=== PATIENT | male | born 1990 | race Two or more races ===

== ENCOUNTER 2020-02-11 18:25 | Emergency (ER) | payer OTHER ==
[~2020-02-11] VITALS: Ht 193 cm; Wt 170.1 kg
[2020-02-11 20:08] VITALS: BP 148/108
== END 2020-02-11 20:36 ==
LOC: EDBD 18:25 → EEVIPCON 18:27 → ER 18:27
DX: U07.1 COVID-19 (principal)
CPT/HCPCS: 71045